=== PATIENT | male | born 1940 | race Caucasian/White ===

== ENCOUNTER 2018-09-21 09:00 | Observation (INO) ==
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
[2018-09-21] MEDS ORDERED: Isovue-370 500 ML BOTTLE IVP ONE ×2 (09:10→11:10)
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
[2018-09-21] MEDS ORDERED: Tdap (Boostrix) Vaccine 0.5 ML SYRINGE IM ONE (09:16)
[2018-09-21] MEDS ORDERED: Oxymetazoline Nasal SPRAY BOTTLE NS PRN (09:36)
[2018-09-21 10:00] LABS: Basophils # 0.1 K/mcL (0.0-0.2); Basophils % 1.2 %; Eosinophils # 0.8 K/mcL (0.0-0.6); Eosinophils % 16.2 %; Hematocrit 33.5 % (37.5-50.1); Hemoglobin 10.9 g/dL (12.9-16.9); Immature Granulocytes % 0.2 % (0-4); Lymphocytes # 1.7 K/mcL (0.6-4.6); Lymphocytes % 33.5 %; Mean Corpuscular HGB Conc 32.5 g/dL (31.6-35.5); Mean Corpuscular Hemoglobin 28.5 pg (28.0-33.3); Mean Corpuscular Volume 87.5 fL (83.0-100.0); Mean Platelet Volume 9.9 fL (9.4-12.4); Monocytes # 0.7 K/mcL (0.0-1.3); Monocytes % 13.3 %; Neutrophils # 1.9 K/mcL (1.6-8.9); Platelet Count 216 K/mcL (140-400); Red Blood Count 3.83 M/mcL (4.19-5.50); Red Cell Distribution Width 15.5 % (11.5-14.5); Segmented Neutrophils % 35.6 %
[2018-09-21 10:08] LABS: Prothrombin Time 11.5 Seconds (9.4-12.1)
[2018-09-21 10:22] LABS: BUN/Creatinine Ratio 16 (6-26); Blood Urea Nitrogen 18 mg/dL (8-23); Calcium 9.7 mg/dL (8.6-10.3); Carbon Dioxide 27 mEq/L (23-29); Chloride 104 mEq/L (98-107); Glucose 102 mg/dL (70-105); Osmolality,Calculated 290 (280-300); Potassium 4.4 mEq/L (3.5-5.1); Sodium 139 mEq/L (136-145); Troponin I < 0.03 ng/mL (< 0.04); eGFR For Non-African Americans > 60 (> 60)
[2018-09-21 12:34] LABS: Bilirubin,Urine Negative (Negative); Blood,Urine Trace (Negative); Clarity,Urine Clear (Clear); Color,Urine Yellow (Yellow); Glucose,Urine (UA) Normal (Normal); Ketones,Urine Negative (Negative); Leukocyte Esterase,Urine Negative (Negative); Nitrite,Urine Negative (Negative); PH,Urine 6.5 pH Units (5.0-8.0); Protein,Urine Negative (Neg-Trace); Specific Gravity,Urine > 1.030 (1.010-1.025); Urobilinogen,Urine Normal (Normal)
[2018-09-21 12:36] LABS: Bacteria,Urine None Seen per hpf (None-Few); Hyaline Casts,Urine None Seen per lpf (None-Few); RBC,Urine 0-3 per hpf (0-3); Squamous Epithelial Cell,Urine Few per lpf (None-Few); WBC,Urine 0-3 per hpf (0-3)
[2018-09-21 12:42] LABS: Amphetamine Screen,Urine Negative ng/mL (Cutoff=1000); Barbiturate Screen,Urine Negative ng/mL (Cutoff=200); Benzodiazepines Screen,Urine Negative ng/mL (Cutoff=200); Cannabinoid Screen,Urine Negative ng/mL (Cutoff = 50); Cocaine Screen,Urine Negative ng/mL (Cutoff= 300); Opiate Screen,Urine Negative ng/mL (Cutoff=300); Phencyclidine Screen,Urine Negative ng/mL (Cutoff=25)
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
[2018-09-21] MEDS ORDERED: Naloxone 0.4 MG/ML INJ IVP PRN (13:26)
[2018-09-21] MEDS ORDERED: Ondansetron 4 MG/2 ML VIAL IVP PRN (13:26)
[2018-09-21] MEDS ORDERED: OXYCODONE Oral CONC 10 MG/0.5 ML ORAL.SYG SL PRN ×2 (13:26)
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
[2018-09-21] MEDS: 0.9 % Sodium Chloride 1,000 ML IVC SCH (16:24)
--- NOTE | 2018-09-21 16:26 | Electrocardiograph Report ---
[place] [id number] Test Date: 2018-09-21 Pat Name: Fernie Mascorro Department: [id number] Room: 3B12 Gender: M [employer] Floorperson: : 1940 Requested By: Pam Goel Order Number: [id number] Reading MD: Sherman Mccain Measurements Intervals [place] Rate: 85 P: 54 VT: 273 QRS: 1 QRSD: 107 T: 79 QT: 409 QTc: 358 Interpretive Statements Sinus rhythm Ventricular bigeminy Prolonged VT interval Electronically Signed On 09-21-2018 16:24:42 EDT by Sherman Mccain
[2018-09-21] MEDS ORDERED: Oxymetazoline Nasal SPRAY BOTTLE NS SCH (18:00)
[2018-09-21] MEDS ORDERED: Dextrose 4 GM Chewable Tablets PO PRN (23:49)
[2018-09-22] MEDS ORDERED: Dextrose Gel 15 GM/37.5 ML TUBE PO PRN (00:15)
[2018-09-22] MEDS: 0.9 % Sodium Chloride 1,000 ML IVC SCH (01:29)
[2018-09-22 05:56] LABS: Basophils # 0.1 K/mcL (0.0-0.2); Basophils % 0.9 %; Eosinophils # 0.8 K/mcL (0.0-0.6); Eosinophils % 11.4 %; Hematocrit 31.1 % (37.5-50.1); Hemoglobin 10.2 g/dL (12.9-16.9); Immature Granulocytes % 0.1 % (0-4); Lymphocytes # 1.6 K/mcL (0.6-4.6); Lymphocytes % 23.4 %; Mean Corpuscular HGB Conc 32.8 g/dL (31.6-35.5); Mean Corpuscular Hemoglobin 27.9 pg (28.0-33.3); Mean Platelet Volume 10.4 fL (9.4-12.4); Monocytes # 0.7 K/mcL (0.0-1.3); Monocytes % 10.6 %; Neutrophils # 3.6 K/mcL (1.6-8.9); Platelet Count 201 K/mcL (140-400); Red Blood Count 3.66 M/mcL (4.19-5.50); Red Cell Distribution Width 15.2 % (11.5-14.5); Segmented Neutrophils % 53.6 %
[2018-09-22 06:07] LABS: INR 1.1
[2018-09-22 06:10] LABS: Activated Partial Thrombo Time 28.8 Seconds (26.0-36.0)
[2018-09-22 06:19] LABS: Alkaline Phosphatase 43 Units/L (34-104); BUN/Creatinine Ratio 14 (6-26); Bilirubin,Total 0.8 mg/dL (0.3-1.0); Blood Urea Nitrogen 13 mg/dL (8-23); Calcium 9.2 mg/dL (8.6-10.3); Carbon Dioxide 24 mEq/L (23-29); Chloride 106 mEq/L (98-107); Glucose 84 mg/dL (70-105); Osmolality,Calculated 285 (280-300); Potassium 4.2 mEq/L (3.5-5.1); Sodium 138 mEq/L (136-145); eGFR For Non-African Americans > 60 (> 60)
[2018-09-22 06:20] LABS: Alanine Aminotransferase 18 Units/L (7-52); Albumin 3.8 g/dL (3.5-5.7); Albumin/Globulin Ratio 1.6 (1.1-2.2); Aspartate Amino Transferase 20 Units/L (13-39); Globulin 2.4 g/dL (2.4-3.5); Total Protein 6.2 g/dL (6.4-8.9)
[2018-09-22 07:36] VITALS: BP 127/81
[2018-09-22] MEDS ORDERED: Sennosides 8.6 MG TABLET PO SCH (09:00)
[2018-09-22] MEDS ORDERED: Aspirin Enteric Coated 325 MG Tablet PO SCH (09:00)
[2018-09-22] MEDS ORDERED: Famotidine 20 MG TABLET PO SCH (09:00)
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
--- NOTE | 2018-09-22 11:21 | EEG/EMG/Oth Biometrics Report ---
EEG Procedure Report EEG Procedure: Routine EEG Procedure Note: This is a routine 21 channel digital EEG performed utilizing 10- 20 international electrode placement system. FINDINGS: Patient has a predominant waking background frequency that is average voltage 8 to 10 Hertz alpha activity in the posterior region, normal amplitude symmetrical over the both hemispheres reactive to eyes opening and closing record continued to show alpha activity intermixed with some theta off and on, no abnormal activity recorded, predominantly no evidence of any spike wave discharges or any lateralizing abnormalities, Photic stimulation and hyperventilation did not produce any convulsive response. Intermittent EMG artifacts were noted. Stage II sleep was not achieved. lot of electrodes artifact noted during this study Impression: Normal awake drowsy electroencephalogram. No epileptiform discharges or any other paroxysmal activities noted. ( Please note that normal EEG does not exclude the diagnosis of seizures or epilepsy, clinical correlation is suggested)
== END 2018-09-22 13:38 | disposition home or self-care (01) ==
LOC: 3BNU 09:00 → EMEROOARM 09:00 → 3BNU 14:53
PROVIDERS: ADMIT Internal Medicine Nephrology; ATTEND Internal Medicine Nephrology